=== PATIENT | female | born 1995 | race Caucasian/White ===

== ENCOUNTER → 2016-11-15 | Outpatient (CLI) | payer OTHER, BC ==
[2016-11-15 14:04] LABS: ALBUMIN/GLOBULIN RATIO 1.3 (1.0-2.2); BILIRUBIN,TOTAL 0.9 mg/dL (0.2-1.0); BUN - BLOOD UREA NITROGEN 11 mg/dL (6-20); CALCIUM 9.1 mg/dL (8.5-10.3); CARBON DIOXIDE - CO2 26 mmol/L (21-32); CHLORIDE 104 mmol/L (101-111); CHOL/HDL RATIO 2.7 (<4.4); CHOLESTEROL 173 mg/dL; CREATININE 0.7 mg/dL (0.4-1.0); GFR - MDRD 106 (>89); GLUCOSE 91 mg/dL (70-100); HDL CHOLESTEROL 64 mg/dL; LDL/HDL RATIO 1.5 (<4.4); POTASSIUM 3.7 mmol/L (3.5-5.0); SODIUM 137 mmol/L (135-145); TOTAL PROTEIN 7.5 g/dL (6.7-8.2); TRIGLYCERIDES 63 mg/dL; VLDL CHOLESTEROL 13 mg/dL
[2016-11-15 14:19] LABS: BASOPHILS % (AUTO) 0.7 %; EOSINOPHILS # (AUTO) 0.1 10^3/uL (0.0-0.7); EOSINOPHILS % (AUTO) 1.5 %; HCT - HEMATOCRIT 39.5 % (37.0-47.0); HGB - HEMOGLOBIN 13.3 g/dL (12.0-16.0); LYMPHOCYTES # (AUTO) 2.1 10^3/uL (1.5-3.5); LYMPHOCYTES % (AUTO) 35.1 %; MEAN CORPUSCULAR HEMOGLOBIN 29.4 pg (27.0-31.0); MEAN CORPUSCULAR HGB CONC 33.5 g/dL (32.0-36.0); MEAN CORPUSCULAR VOLUME 87.6 fL (81.0-99.0); MEAN PLATELET VOLUME 9.9 fL (7.9-10.8); MONOCYTES # (AUTO) 0.5 10^3/uL (0.0-1.0); MONOCYTES % (AUTO) 7.9 %; NEUTROPHILS # (AUTO) 3.3 10^3/uL (1.5-6.6); NEUTROPHILS % (AUTO) 54.8 %; RED BLOOD COUNT 4.51 10^6/uL (4.20-5.40); RED CELL DISTRIBUTION WIDTH 13.8 % (12.0-15.0)
[2016-11-15 14:39] LABS: HEMOGLOBIN A1C 0.5 g/dL
== END ==
LOC: LAB.WCP 08:00
PROVIDERS: ATTEND Family Medicine
DX: Z00.00 Encounter for general adult medical examination without abnormal findings (principal)
CPT/HCPCS: 36415; 80053; 80061; 83036; 84443; 85025

== ENCOUNTER 2017-04-27 10:41 | Outpatient (CLI) | payer OTHER ==
[2017-04-27 11:05] LABS: BASOPHILS # (AUTO) 0.1 10^3/uL (0.0-0.1); BASOPHILS % (AUTO) 0.8 %; EOSINOPHILS # (AUTO) 0.1 10^3/uL (0.0-0.7); EOSINOPHILS % (AUTO) 0.6 %; HGB - HEMOGLOBIN 13.4 g/dL (12.0-16.0); LYMPHOCYTES # (AUTO) 2.3 10^3/uL (1.5-3.5); LYMPHOCYTES % (AUTO) 25.2 %; MEAN CORPUSCULAR HEMOGLOBIN 30.7 pg (27.0-31.0); MEAN CORPUSCULAR HGB CONC 34.5 g/dL (32.0-36.0); MEAN CORPUSCULAR VOLUME 88.9 fL (81.0-99.0); MEAN PLATELET VOLUME 8.5 fL (7.9-10.8); MONOCYTES # (AUTO) 0.7 10^3/uL (0.0-1.0); MONOCYTES % (AUTO) 7.2 %; NEUTROPHILS % (AUTO) 66.2 %; PLT - PLATELET COUNT 193 10^3/uL (130-450); RED BLOOD COUNT 4.37 10^6/uL (4.20-5.40); RED CELL DISTRIBUTION WIDTH 13.5 % (12.0-15.0); WHITE BLOOD COUNT 9.1 x10^3/uL (4.8-10.8)
[2017-04-27 11:22] LABS: BILIRUBIN,URINE NEGATIVE (NEGATIVE); GLUCOSE, URINE (UA) NEGATIVE (NEGATIVE); KETONES,URINE (UA) NEGATIVE (NEGATIVE); LEUKOCYTE ESTERASE, URINE NEGATIVE (NEGATIVE); NITRITE,URINE NEGATIVE (NEGATIVE); OCCULT BLOOD,URINE SMALL (NEGATIVE); PROTEIN,URINE NEGATIVE (NEGATIVE); UROBILINOGEN,URINE 0.2 (NORMAL) E.U./dL (NORMAL)
[2017-04-27 11:24] LABS: CLARITY,URINE CLEAR (CLEAR)
[2017-04-27 11:50] LABS: RBC,URINE 0-5 /HPF (0-5); SQUAMOUS EPITHELIAL CELL,UR RARE Squamous (<= Few)
[2017-04-27 11:51] LABS: BACTERIA,URINE Rare /HPF (None Seen)
[2017-04-28 13:22] LABS: HEPATITIS B SURFACE ANTIGEN NON-REACTIVE (NON-REACTIVE); HEPATITIS C ANTIBODY NON-REACTIVE (NON-REACTIVE)
[2017-04-28 13:31] LABS: HIV AG/AB 4TH GEN NON-REACTIVE (NON-REACTIVE)
== END 2017-04-27 10:42 | disposition home or self-care (01) ==
LOC: LAB 10:41
PROVIDERS: ATTEND Nurse Practitioner Obstetrics & Gynecology
DX: Z36.9 Encounter for antenatal screening, unspecified (principal); Z11.3 Encounter for screening for infections with a predominantly sexual mode of transmission
CPT/HCPCS: 36415; 81001; 81599; 85025; 86592; 86762; 86803; 86850; 86900; 86901; 87340; 87389; 87491; 87591

== ENCOUNTER 2017-04-27 15:51 | Outpatient (CLI) | payer OTHER | END 2017-04-27 15:52 | disposition home or self-care (01) | LOC: LAB.R 15:51 | PROVIDERS: ATTEND Nurse Practitioner Obstetrics & Gynecology | DX: Z11.3 Encounter for screening for infections with a predominantly sexual mode of transmission (principal) | CPT/HCPCS: 87491; 87591 ==

== ENCOUNTER 2017-05-25 10:00 | Outpatient (CLI) | payer OTHER | END 2017-05-25 10:01 | disposition home or self-care (01) | LOC: LAB.R 10:00 | PROVIDERS: ATTEND Registered Nurse | DX: R82.99 Other abnormal findings in urine (principal) | CPT/HCPCS: 87086 ==

== ENCOUNTER 2017-08-02 07:30 | Outpatient (CLI) | payer OTHER ==
--- NOTE | 2017-08-02 16:00 | Ultrasound Report ---
OB ULTRASOUND: 08/02/2017 CLINICAL INDICATION: anatomy. TECHNIQUE: Real-time scanning was performed with sales representative printing paper static images obtained. LAST MENSTRUAL PERIOD: -- Clinical Age: -- US Age: 19 weeks 4 days EFW Hadlock: 293 grams EFW% Hadlock: -- Heart Rate: 146 bpm EDC: -- US EDC: 12/23/2017 BPD Hadlock: 19 weeks 4 days; Mean mm 45 HC Hadlock: 19 weeks 5 days; Mean mm 171 AC Hadlock: 19 weeks 3 days; Mean mm 141 FL Hadlock: 19 weeks 2 days; Mean mm 30 Presentation: cephalic Placental Location: posterior Cervical Length: TA 4.2 cm Amniotic Fluid: MICHELET 11.2 cm; subjectively normal; MVP 4.0 cm FINDINGS: There is a single viable intrauterine gestation, in cephalic presentation. heart rate is 146 BPM. Placenta is posterior, without evidence of previa. Amniotic fluid volume is subjectively normal, deepest pocket of 4 cm. By size, the fetus measures 19 weeks 4 days (20 weeks 1 day by provided JUANA, provided LMP does not match provided JUANA, and was not entered). The following anatomic structures were visualized and appear normal: The intracranial contents, including the ventricles and posterior fossa; the lips and orbits; the spine; the heart, including 4 chamber view and outflow tracts, and diaphragm; the abdominal contents, including the stomach, the bilateral kidneys, and urinary bladder, as well as a normal 3-vessel cord insertion; 4 limbs. No free fluid or adnexal lesion is appreciated. IMPRESSION: SINGLE VIABLE INTRAUTERINE GESTATION, MEASURING 19 WEEKS 4 DAYS BY SIZE. NORMAL ANATOMIC SURVEY. TD: 08/02/2017 11:43 [facility]
== END 2017-08-02 07:31 | disposition home or self-care (01) ==
LOC: DI 07:30
PROVIDERS: ATTEND Nurse Practitioner Obstetrics & Gynecology
DX: Z36.9 Encounter for antenatal screening, unspecified (principal); Z3A.19 19 weeks gestation of pregnancy
CPT/HCPCS: 76811

== ENCOUNTER 2017-09-04 14:23 | Outpatient (CLI) | payer OTHER ==
[2017-09-04 15:12] LABS: BILIRUBIN,URINE NEGATIVE (NEGATIVE); GLUCOSE, URINE (UA) NEGATIVE (NEGATIVE); KETONES,URINE (UA) NEGATIVE (NEGATIVE); LEUKOCYTE ESTERASE, URINE NEGATIVE (NEGATIVE); NITRITE,URINE NEGATIVE (NEGATIVE); OCCULT BLOOD,URINE NEGATIVE (NEGATIVE); PROTEIN,URINE NEGATIVE (NEGATIVE); UROBILINOGEN,URINE 0.2 (NORMAL) E.U./dL (NORMAL)
[2017-09-04 15:14] VITALS: BP 124/68
[2017-09-04 15:26] LABS: BACTERIA,URINE None Seen /HPF (None Seen); CLARITY,URINE CLEAR (CLEAR); RBC,URINE None Seen /HPF (0-5); SQUAMOUS EPITHELIAL CELL,UR NONE SEEN (<= Few)
== END 2017-09-04 15:30 | disposition home or self-care (01) ==
LOC: WFO 14:23 → FBP 14:26 → WFO 15:30
PROVIDERS: ATTEND Obstetrics & Gynecology
DX: O26.892 Other specified pregnancy related conditions, second trimester (principal); Z3A.24 24 weeks gestation of pregnancy
CPT/HCPCS: 81001; 87086; 99213

== ENCOUNTER 2017-09-23 09:06 | Outpatient (CLI) | payer OTHER | END 2017-09-23 09:07 | disposition home or self-care (01) | LOC: LAB.WCP 09:06 | PROVIDERS: ATTEND Nurse Practitioner Obstetrics & Gynecology | DX: Z36.9 Encounter for antenatal screening, unspecified (principal) | CPT/HCPCS: 36415; 82950; 85018; 86850 ==

== ENCOUNTER 2017-10-11 17:00 | Outpatient (CLI) | payer OTHER ==
[2017-10-11] MEDS ORDERED: BETAMETHASONE 30 MG/5 ML VIAL IM ONE (17:39)
[2017-10-11 17:49] LABS: BILIRUBIN,URINE NEGATIVE (NEGATIVE); CLARITY,URINE CLEAR (CLEAR); GLUCOSE, URINE (UA) NEGATIVE (NEGATIVE); KETONES,URINE (UA) NEGATIVE (NEGATIVE); LEUKOCYTE ESTERASE, URINE NEGATIVE (NEGATIVE); NITRITE,URINE NEGATIVE (NEGATIVE); OCCULT BLOOD,URINE NEGATIVE (NEGATIVE); PH,URINE 6.5 PH (5.0-7.5); PROTEIN,URINE NEGATIVE (NEGATIVE); UROBILINOGEN,URINE 0.2 (NORMAL) E.U./dL (NORMAL)
[2017-10-11 18:07] LABS: BACTERIA,URINE None Seen /HPF (None Seen); RBC,URINE None Seen /HPF (0-5); SQUAMOUS EPITHELIAL CELL,UR RARE Squamous (<= Few)
[2017-10-11 20:07] VITALS: BP 107/58
--- NOTE | 2017-10-11 20:42 | Ultrasound Report ---
Procedure Date: 10/11/2017 Accession Number: [id number] / [id number] Procedure: US - OB Transvaginal CPT Code: FULL RESULT: EXAM: LIMITED OBSTETRICAL ULTRASOUND EXAM DATE: 10/11/2017 07:20 PM. CLINICAL HISTORY: Cervical length. COMPARISON: None. TECHNIQUE: Real-time sonographic evaluation of the cervix was performed. Select static images are submitted for interpretation. Transabdominal and transvaginal technique was used. DATING: Established EGA 29 weeks 4 days with JUANA 12/23/2017. The cervix is long and closed measuring 5 cm. heart rate is 161 bpm. IMPRESSION: 1. Lozano live intrauterine with gestational age 29 weeks 4 days based on established JUANA. 2. The cervix is long and closed measuring 5 cm in length. RADIA
== END 2017-10-11 20:04 | disposition home or self-care (01) ==
LOC: WFO 17:00 → FBP 17:05 → WFO 20:04
PROVIDERS: ATTEND Nurse Practitioner Obstetrics & Gynecology
DX: O47.1 False labor at or after 37 completed weeks of gestation (principal); Z3A.30 30 weeks gestation of pregnancy
CPT/HCPCS: 76817; 81001; 82731; 87081; 87086; 87181; 87797; 96372; 99214

== ENCOUNTER 2017-10-12 17:35 | Outpatient (CLI) | payer OTHER ==
[2017-10-12] MEDS ORDERED: BETAMETHASONE 30 MG/5 ML VIAL IM ONE (17:40)
== END 2017-10-12 17:51 | disposition home or self-care (01) ==
LOC: WFO 17:35 → FBP 17:36 → WFO 17:51
PROVIDERS: ATTEND Nurse Practitioner Obstetrics & Gynecology
DX: O47.03 False labor before 37 completed weeks of gestation, third trimester (principal); Z3A.30 30 weeks gestation of pregnancy
CPT/HCPCS: 96372

== ENCOUNTER 2017-10-13 12:36 | Outpatient (CLI) | payer OTHER ==
[2017-10-13 12:53] VITALS: BP 129/70
--- NOTE | 2017-10-14 11:44 | HISTORY & PHYSICAL EXAMINATION ---
DATE OF SERVICE: 10/13/2017 Physician: Issac Valdivia MD DIAGNOSES 1. A 30-week, 1 day gestation. 2. Complains of pelvic pressure. Patient is a 22-year-old, primigravida at 30 weeks 1 day gestation who has had regular care with Kinsey Awad. By ultrasound dating criteria ( final JUANA 12/19), patient is 30 weeks 1 day today. She reports pelvic pressure and pain. She does not report contractions, bleeding or vaginal discharge, nor suspicion of leaking fluid. She had been evaluated by Kinsey Awad 2 days ago, with my supervision. At that time, her cervical length was 5 cm, FFN was negative, and a cervical length was long, thick, and closed. She has no UTI symptoms, and previous urinalysis was essentially normal. She received 2 doses of betamethasone. There are no signs or symptoms of preeclampsia. PHYSICAL EXAMINATION GENERAL: Patient is somewhat anxious, lying supine on the stretcher in no distress, communicative, in attendance. VITAL SIGNS: Normotensive, afebrile. HEENT: Supple neck. Moist mucous membranes. Nonicteric sclerae. LUNGS: Clear. CARDIAC: Regular. No murmur, no gallop. BREASTS: Deferred. ABDOMEN: No epigastric tenderness or organomegaly. CVA tenderness. Benign exam. UTERUS: Appropriate for size of 30 cm fundal height. Normal resting tone. No contractions felt. EXTERNAL GENITALIA: No lesions, no discharge, no blood. VAGINA: No blood or discharge. Cervix long, thick, closed, posterior and high , essentially no change from baseline exam. PELVIC/MUSCULOSKELETAL: Levator plate tenderness, some mild spasm. No symphysis tenderness. Did not reproduce a round ligament type of pain on pressure to the inguinal canal. MUSCULOSKELETAL/GENERAL: Negative straight leg raise. EXTERNAL MONITOR: Category 1 strip, baseline between 130 and 160. Variability maintained. No decelerations. No organized contraction pattern. PSYCHIATRIC: Patient does have a baseline increase in anxiety. ASSESSMENT: Patient is not in labor and is of low risk of delivery based on fibronectin and cervical length. Cervical exam was done at her request because of fear of undetected labor. She was given reassurances. She has a levator plate and musculoskeletal complaints that trigger increased anxiety. She was given reassurance that she should report any unusual uterine activity or suspected problems to us promptly. Patient works as a scribe in an emergency room and, due to the nature of that job, she is exposed to some traumatic events that may fuel her anxiety. PLAN 1. Gave patient reassurance. Reviewed all labs and information with her and her . 2. Recommend daily stretching activity for lumbar pain, inclusive of a tennis ball massage. 3. Reviewed the signs and symptoms of labor and preeclampsia. 4. She is to keep her next scheduled appointment with Kinsey Awad. A total of 35 minutes was spent, the majority of which was in education and counseling. TD: 10/14/2017 08:43 GEE
== END 2017-10-13 14:10 | disposition home or self-care (01) ==
LOC: WFO 12:36 → FBP 12:38 → WFO 14:10
PROVIDERS: ATTEND Nurse Practitioner Obstetrics & Gynecology
DX: O26.893 Other specified pregnancy related conditions, third trimester (principal); Z3A.30 30 weeks gestation of pregnancy
CPT/HCPCS: 99212

== ENCOUNTER 2017-11-17 10:33 | Outpatient (CLI) | payer OTHER ==
[2017-11-17 11:01] VITALS: BP 114/78
[2017-11-17 11:26] LABS: BILIRUBIN,URINE NEGATIVE (NEGATIVE); GLUCOSE, URINE (UA) NEGATIVE (NEGATIVE); KETONES,URINE (UA) NEGATIVE (NEGATIVE); LEUKOCYTE ESTERASE, URINE NEGATIVE (NEGATIVE); NITRITE,URINE NEGATIVE (NEGATIVE); OCCULT BLOOD,URINE NEGATIVE (NEGATIVE); PROTEIN,URINE NEGATIVE (NEGATIVE); UROBILINOGEN,URINE 0.2 (NORMAL) E.U./dL (NORMAL)
[2017-11-17 11:28] LABS: CLARITY,URINE CLEAR (CLEAR)
[2017-11-17] MEDS ORDERED: LACTATED RINGERS 1,000 ML IV ONE (11:29)
[2017-11-17 12:43] LABS: BASOPHILS # (AUTO) 0.1 10^3/uL (0.0-0.1); BASOPHILS % (AUTO) 0.6 %; EOSINOPHILS % (AUTO) 0.1 %; HGB - HEMOGLOBIN 11.2 g/dL (12.0-16.0); LYMPHOCYTES # (AUTO) 2.3 10^3/uL (1.5-3.5); LYMPHOCYTES % (AUTO) 20.9 %; MEAN CORPUSCULAR HEMOGLOBIN 27.3 pg (27.0-31.0); MEAN CORPUSCULAR HGB CONC 32.6 g/dL (32.0-36.0); MEAN CORPUSCULAR VOLUME 83.7 fL (81.0-99.0); MEAN PLATELET VOLUME 10.6 fL (7.9-10.8); MONOCYTES # (AUTO) 0.5 10^3/uL (0.0-1.0); MONOCYTES % (AUTO) 4.9 %; NEUTROPHILS # (AUTO) 8.2 10^3/uL (1.5-6.6); NEUTROPHILS % (AUTO) 73.5 %; PLT - PLATELET COUNT 170 10^3/uL (130-450); RED CELL DISTRIBUTION WIDTH 15.4 % (12.0-15.0); WHITE BLOOD COUNT 11.1 x10^3/uL (4.8-10.8)
[2017-11-17 12:56] LABS: ALBUMIN 3.2 g/dL (3.2-5.5); ALBUMIN/GLOBULIN RATIO 0.9 (1.0-2.2); BILIRUBIN,TOTAL 0.4 mg/dL (0.2-1.0); CREATININE 0.7 mg/dL (0.4-1.0); TOTAL PROTEIN 6.9 g/dL (6.7-8.2)
[2017-11-17 13:27] LABS: CALCIUM 9.1 mg/dL (8.5-10.3)
== END 2017-11-17 15:25 | disposition home or self-care (01) ==
LOC: WFO 10:33 → FBP 10:40 → WFO 15:25
PROVIDERS: ATTEND Registered Nurse
DX: O47.1 False labor at or after 37 completed weeks of gestation (principal); Z3A.37 37 weeks gestation of pregnancy
CPT/HCPCS: 80053; 81003; 85025; 99213; J7120; 81001; 87086

== ENCOUNTER 2017-11-21 09:44 | Outpatient (CLI) | payer OTHER ==
--- NOTE | 2017-11-21 14:57 | Ultrasound Report ---
Reason: UTERINE SIZE DATE DISCREPANCY,THIRD TRIMESTER Procedure Date: 11/21/2017 Accession Number: [id number] / [id number] Procedure: US - OB F/U or Repeat CPT Code: FULL RESULT: EXAM: FOLLOW-UP OBSTETRICAL ULTRASOUND EXAM DATE: 11/21/2017 11:27 AM. CLINICAL HISTORY: Size greater than dates. Third trimester. COMPARISON: None. TECHNIQUE: Real-time sonographic evaluation of the fetus performed by the plastic shaper. Multiple billing representative static images were saved for review. DATING: Established EGA 35 weeks 3 days with JUANA 12/23/2017 based on established dates. EGA 35 weeks 3 days with JUANA 12/23/2017 based on the current ultrasound. GENERAL EVALUATION Lozano . Cardiac activity: 150 bpm. movement: Visualized. Presentation: Cephalic. Placenta: Posterior fundal position. Amniotic fluid: Polyhydramnios. MICHELET 26.6 cm. MVP 8.2 cm. BIOMETRY Bi-Parietal Diameter (BPD): 9.1 cm, 36 weeks 4 days. Head Circumference (HC): 32.8 cm, 37 weeks 1 day. Abdominal Circumference (AC): 31.5 cm, 35 weeks 3 days. Femur Length (FL): 6.3 cm, 32 weeks 4 days. Estimated Weight: 2567 gm. IMPRESSION: 1. Lozano live intrauterine with gestational age 35 weeks 3 days based on established dates. 2. Estimated weight is within expected limits for assigned dating. 3. Polyhydramnios with amniotic fluid index 26.6 cm. RADIA
== END 2017-11-21 09:45 | disposition home or self-care (01) ==
LOC: DI 09:44
PROVIDERS: ATTEND Registered Nurse
DX: O26.843 Uterine size-date discrepancy, third trimester (principal); O40.3XX0 Polyhydramnios, third trimester, not applicable or unspecified; Z3A.35 35 weeks gestation of pregnancy
CPT/HCPCS: 76816

== ENCOUNTER 2017-11-22 08:00 | Outpatient (CLI) | payer OTHER | END 2017-11-22 08:01 | disposition home or self-care (01) | LOC: LAB.R 08:00 | PROVIDERS: ATTEND Nurse Practitioner Obstetrics & Gynecology | DX: Z36.85 Encounter for antenatal screening for Streptococcus B (principal) | CPT/HCPCS: 87797 ==

== ENCOUNTER 2017-11-26 12:56 | Outpatient (CLI) | payer OTHER ==
[2017-11-26] MEDS ORDERED: LACTATED RINGERS 500 ML IV ONE (15:42)
[2017-11-26] MEDS ORDERED: LACTATED RINGERS 1,000 ML IV ONE (15:47)
[2017-11-26] MEDS: SODIUM CHLORIDE FLUSH 0.9% 10 ML SYRINGE IVP PRN ×2 (15:50→18:07)
[2017-11-26] MEDS ORDERED: MORPHINE 10 MG/ML VIAL IVP ONE (17:44)
[2017-11-26] MEDS ORDERED: PROMETHAZINE 25 MG/1 ML VIAL IM SCH (18:00)
[2017-11-26 20:24] VITALS: BP 129/67
--- NOTE | 2017-11-26 20:24 | Ultrasound Report ---
Reason: POLYHYDRAMNIOS, 3RD TRIMESTER Procedure Date: 11/26/2017 Accession Number: [id number] / [id number] Procedure: US - OB Biophysical Profile CPT Code: FULL RESULT: EXAM: BIOPHYSICAL PROFILE EXAM DATE: 11/26/2017 01:41 PM. CLINICAL HISTORY: Polyhydramnios, 3rd trimester. COMPARISON: OB follow up or repeat 11/21/2017 10:08 AM. TECHNIQUE: Real-time sonographic evaluation of the fetus performed by the outside upholsterer. Multiple medical field representative static images were saved for review. DATING: Established EGA 36 weeks 1 day with JUANA 12/23/2017. GENERAL EVALUATION Lozano . Cardiac activity: 135 bpm. movement: Visualized. Presentation: Cephalic. Placenta: Posterior fundal position. No evidence for previa or abruption. Amniotic fluid: Elevated. MICHELET 20.6 cm. Previously 26.55 cm. MVP 10.1 cm. BIOPHYSICAL PROFILE Breathing = 2 Movement = 2 Tone = 2 Amniotic Fluid = 2 Total 10/12 IMPRESSION: 1. Lozano live intrauterine with gestational age 36 weeks 1 day based on established JUANA. 2. Biophysical profile score 8 of 8. 3. Amniotic fluid index measures 20.6 cm compared with the previous 26.6 cm. RADIA
== END 2017-11-26 21:36 | disposition home or self-care (01) ==
LOC: DI 12:56 → FBP 14:19 → DI 21:36
PROVIDERS: ATTEND Nurse Practitioner Obstetrics & Gynecology
DX: O40.3XX0 Polyhydramnios, third trimester, not applicable or unspecified (principal); O47.1 False labor at or after 37 completed weeks of gestation; Z3A.36 36 weeks gestation of pregnancy
CPT/HCPCS: 59025; 76819; 96361; 96372; 96374; 99213; J7120

== ENCOUNTER 2017-12-02 15:00 | Outpatient (CLI) | payer OTHER ==
[2017-12-02 17:19] VITALS: BP 123/80
--- NOTE | 2017-12-02 21:34 | Ultrasound Report ---
Reason: POLYHYDRAMNIOS, 3RD TRIMESTER Procedure Date: 12/02/2017 Accession Number: [id number] / [id number] Procedure: US - OB Biophysical Profile CPT Code: FULL RESULT: EXAM: BIOPHYSICAL PROFILE EXAM DATE: 12/02/2017 04:35 PM. CLINICAL HISTORY: POLYHYDRAMNIOS, 3RD TRIMESTER. COMPARISON: 11/26/2017. TECHNIQUE: Real-time sonographic evaluation of the fetus performed by the tool smith. Multiple sales solutions representative static images were saved for review. DATING: Established EGA 37 weeks 0 days with JUANA 12/24/1979. GENERAL EVALUATION Lozano . Cardiac activity: 150 bpm. movement: Visualized. Presentation: Cephalic. Placenta: Fundal posterior position. No evidence for previa or abruption. Amniotic fluid: Normal. MICHELET 26.3 cm. MVP 8.4 cm. BIOPHYSICAL PROFILE Breathing = 2 Movement = 2 Tone = 2 Amniotic Fluid = 2 Total 10/12 IMPRESSION: 1. Lozano live intrauterine with normal biophysical profile. 2. Polyhydramnios. RADIA
--- NOTE | 2017-12-04 02:30 | Labor Flowsheet ---
Labor Flowsheet Datetime Report Generated by CPN: 12/04/2017 02:30 Datetime: 12/03/2017 20:18 VITAL SIGNS NBP Sys/Eulalia/Mean (mmHg): 110 : 59 : 70 Pulse: 79 SpO2 (%): 100 Datetime: 12/03/2017 18:32 Comments: This tracing is not for Seehaver - this is for a 22week gestation triage patient Datetime: 11/26/2017 21:11 UTERINE ACTIVITY Monitor Mode: External Monitor Interventions for UA: [place] Adjusted Frequency (min): uterine irritability Quality: Mild Duration (sec): 10-40 Pattern: Normal: <= 5 Contractions in 10 Minutes Resting Tone (Palpate): Relaxed ASSESSMENT A Monitor Mode: External US Monitor Interventions for FHR: Ultrasound Adjusted FHR Baseline Rate : 135 Variability: Moderate 6-25 bpm Accelerations: 15X15 Decelerations: None Datetime: 11/26/2017 20:15 Contraction Comments: Pt states feeling rare contraction, only lower abdominal and back pressure Category: Category I Datetime: 11/26/2017 20:00 Respirations: 17 Temperature (C): 37.3 PAIN Pain Scale: 5 Pain Presence: Intermittent Pain Goal: 7 Pain Assessment Comments: pt states pain is much less now MATERNAL ASSESSMENT Level of Consciousness: Fully Conscious DTR's/Clonus: DTRs 2+ Headache: Denies Breath Sounds, Left: Clear and Equal Breath Sounds, Right: Clear and Equal Nausea/Vomiting: Denies RUQ Epigastric Pain: Denies
== END 2017-12-02 17:12 | disposition home or self-care (01) ==
LOC: DI 15:00 → FBP 17:10 → DI 17:12
PROVIDERS: ATTEND Nurse Practitioner Obstetrics & Gynecology
DX: O40.3XX0 Polyhydramnios, third trimester, not applicable or unspecified (principal)
CPT/HCPCS: 59025; 76819

== ENCOUNTER 2017-12-04 05:42 | Inpatient (IN) | payer OTHER ==
[2017-12-04] MEDS ORDERED: fentaNYL 100 MCG/2 ML VIAL IVP PRN (06:03)
[2017-12-04] MEDS ORDERED: SODIUM CHLORIDE FLUSH 0.9% 10 ML SYRINGE IVP PRN (06:03)
[2017-12-04] MEDS ORDERED: SODIUM CHLORIDE FLUSH 0.9% 10 ML SYRINGE ONE ×2 (06:18→14:14)
[2017-12-04] MEDS ORDERED: LACTATED RINGERS 1,000 ML IV ONE (06:18)
[2017-12-04] MEDS ORDERED: VANCOMYCIN INJ 1 GM in SODIUM CHLORIDE 0.9% 250 ML IV SCH ×5 (06:30→19:00)
[2017-12-04 06:35] LABS: RUPTURE OF MEMBRANES PLUS POSITIVE (NEGATIVE)
[2017-12-04] MEDS: ONDANSETRON 4 MG/2 ML VIAL IVP PRN ×3 (06:52→19:27)
[2017-12-04 06:54] LABS: BASOPHILS # (AUTO) 0.1 10^3/uL (0.0-0.1); EOSINOPHILS % (AUTO) 0.6 %; HGB - HEMOGLOBIN 10.4 g/dL (12.0-16.0); LYMPHOCYTES # (AUTO) 2.6 10^3/uL (1.5-3.5); MEAN CORPUSCULAR HGB CONC 33.1 g/dL (32.0-36.0); MEAN CORPUSCULAR VOLUME 78.5 fL (81.0-99.0); MEAN PLATELET VOLUME 9.9 fL (7.9-10.8); MONOCYTES # (AUTO) 0.7 10^3/uL (0.0-1.0); NEUTROPHILS % (AUTO) 59.4 %; PLT - PLATELET COUNT 177 10^3/uL (130-450); RED BLOOD COUNT 4.01 10^6/uL (4.20-5.40); RED CELL DISTRIBUTION WIDTH 16.4 % (12.0-15.0); WHITE BLOOD COUNT 8.5 x10^3/uL (4.8-10.8)
[2017-12-04] MEDS: LACTATED RINGERS 1,000 ML IV SCH ×2 (08:14→15:45)
[2017-12-04] MEDS ORDERED: miSOPROStol 100 MCG TABLET BC SCH ×2 (09:00→13:13)
[2017-12-04] MEDS: SERTRALINE 50 MG TABLET PO SCH (09:08)
[2017-12-04] MEDS: SODIUM CHLORIDE FLUSH 0.9% 10 ML SYRINGE IVP SCH ×2 (09:08→17:06)
--- NOTE | 2017-12-04 11:38 | HISTORY & PHYSICAL EXAMINATION ---
Admit History - Instructions [place]/Slash: -Left hand click circles element as positive or present. -Right hand click slashes element as negative or not present. - Visit Reason Visit Reason: Membranes rupture - : 1 Parity: 0 Premature: 0 Ectopic: 0 Care: positive: [facility] Risk/History: positive: None Complications This : positive: Other Smoking Status: Never smoker - Mother's Labs Mother's Blood Type: positive: A Mother's RH: positive: Negative GBS: positive: Group B Strep Positive Rubella Status: positive: Immune Meds/Allgy - Allergies Allergies/Adverse Reactions: Allergies Allergy/AdvReac Type Severity Reaction Status Date / Time Penicillins AdvReac Hives Verified 11/17/17 11:35 Review of Systems - Constitutional Constitutional: denies: Fatigue, Fever, Chills - Eyes Eyes: denies: Pain, Irritation, Blurred vision, Spots in vision, Field loss, Vision loss - Cardiovascular Cariovascular: denies: Irregular heart rate, Palpitations, Chest pain, Edema, Lightheadedness - Respiratory Respiratory: denies: Cough, Sputum production, Wheezing - Gastrointestinal Gastrointestinal: denies: Abdominal pain, Constipation, Diarrhea, Nausea, Vomiting - Genitourinary Genitourinary: denies: Dysuria, Frequency, Urgency - Integumentary Integumentary: denies: Rash, Pruritis - Neurological Neurological: denies: Headache - Psychiatric Psychiatric: denies: Depression, Anxiety Physical - Abdominal Exam Vital Signs: Temp Pulse Resp BP Pulse Ox 36.5 C 98 20 117/79 98 12/04/17 05:51 12/04/17 05:51 12/04/17 05:51 12/04/17 05:51 12/04/17 05:51 Contraction Frequency (min/apart): 3-6 Contraction Intensity: positive: Mild to moderate Uterine Resting Tone: positive: Soft - Monitoring Heart Rate Baseline: 150 Strip Review: positive: Category I - Presentation Presentation: positive: Vertex - Vaginal Exam Membranes: positive: Membranes ruptured Dilation (in cm): 2-3 Effacement (%): 80 Station: positive: -1 Cervical Position: positive: Posterior - Speculum Exam Speculum Exam Performed: positive: No Findings: positive: Gross leak Plan for Labor - Plan For Labor I expect patient to be DC'd or transferred within 96 hours.: Yes Plan for Labor: HPI: Gianna is a 22yo @ 37.6wks gestation by 6.2wk U/S who presents to [facility] with c/o spontaneous rupture of membranes on 12/04/2017 at 0500. She reports leakage of a large amount of clear fluid vaginally. She denies VB. Reports mild, intermittent contractions. Reports +FM. She denies GL[place], visual disturbances, RUQ or epigastric pain. She has been a patient of [facility] throughout the duration of her . Her has been complicated by anxiety and depression which required sertraline 50mg PO daily for management, intermittent episodes of lower abdominal pain and uterine irritability - FFN negative with ultrasound for evaluation of cervical length 10/18/2017. Polyhydramnios diagnosed by ultrasound at 35wks gestation for which she was evaluated by once weekly NST and BPP. She is Rh negative and received Rhogam 09/27/2017 following negative antibody screen. She tested positive for GBS at 36wks gestation and is allergic to penicillin Upon her arrival she was noted to be 1-2/75/-3, posterior, vertex with grossly rupture membranes and large amount of yellow-tinged vaginal fluid. She was admitted to L&D for active management. Occasional intermittent contractions which palpate mild with soft resting tone. FHR baseline 150s upon arrival. Over the first 4 hours following admission the FHR baseline steadily increased. Moderate variability, + accels, no decels. Fluid bolus of LR administered and FHR baseline decreased appropriately to 150s. Dating criteria: 1.) LMP 03/07/2017 2.) Initial ultrasound @ 6.2wks does not agree 3.) Serial exams 10-37wks agrees with established dating OB History: G1: Current [employer] Hx: Menarche age 12 Reguarly menses every 32-34 days No hx STIs, no hx [employer] surgeries Hx abnormal pap x1 -Last pap 11/2016 HPV positive PMHx: Depression; Migraine headaches; Gastric reflux Medications: Hydroxyzine 50mg; Sertraline 50mg; PNV Allergies: Penicillin - severe reaction Social Hx: Fijoseline Ramirez. Never smoker. No ETOH or IVDA. Works as a medical office administrator in the ED. Family Hx: Depression - Mother; Diabetes - paternal grandfather; HTN - maternal grandfather; alcohol or drug problem - father labs: A neg; antibody neg Hgb 13.4; HCT38.9; PLT 193 HIV neg Rubella immune Hep B non-reactive Hep C non-reactive RPR non-reactive GC/CT neg 28 week labs: 1 hour GTT 128 Hgb 11.3 Antibody neg Rhogam 09/27/2017 Tdap 09/27/2017 GBS positive - penicillin allergic Ultrasounds: 08/08/2017 FAS WNL; posterior placenta, no previa. Size c/w established dating. MICHELET WNL. 10/18/2017 Cervix long and closed measuring 5cm in length 11/23/2017 Growth and MICHELET secondary to size > dates reveals size c/w dating - EFW 2567. Polyhydramnios with MICHELET 26.6cm 11/29/2017 BPP 8/8, NST reactive. MICHELET 20.6cm 12/02/2017 MICHELET 26.3. MVP 8.4cm. Physical Exam: A&O x 4 Heart RRR w/o M/G/R Lungs CTAB Abdomen gravid, soft, nontender EFW 3100g Bilateral LE's minimal edema Assessment: 22yo @ 37.6wks gestation Polyhydramnios PROM x 7.5 hours; Light meconium in amniotic fluid GBS positive; penicillin allergic - Vancomycin q 12 hours for prophlyaxis Pre-induction cervical ripening x 2 doses FHR category I Plan: Continue pre-induction cervical ripening Continuous monitoring Continue Vancomycin q 12 hours for GBS prophylaxis Repeat SVE with third dose of misoprostol - consider initiation of pitocin per protocol at that time Encouraged ambulation and frequent position changesGloria Norris for hydrotherapy or N2O for pain management Epidural per maternal request Reviewed plan of care with pt, , and RN at the bedside. They all verbalized understanding and agree to the above plan. They deny further questions or concerns at this time.
[2017-12-04] MEDS: OXYTOCIN/SODIUM CHLORIDE 250 ML IV ONE (11:40)
[2017-12-04] MEDS ORDERED: fent/BUPIV 2 MCG/0.125% 250 ML EP ONE (15:24)
--- NOTE | 2017-12-04 16:09 | ANESTHESIA ---
Pre-Anesthesia VS, & Labs - Diagnosis active labor - Procedure labor epidural Vital Signs: Temp Pulse Resp BP Pulse Ox 36.5 C 98 20 117/79 98 12/04/17 05:51 12/04/17 05:51 12/04/17 05:51 12/04/17 05:51 12/04/17 05:51 Height 5 ft 6 in Weight (kg) 104.78 kg - NPO Other (to be clears from now till delivery, vomitong upon my arrival) - Is Patient ?: Yes - Lab Results Current Lab Results: Laboratory Tests 12/04/17 06:30: WBC 8.5, RBC 4.01 L, Hgb 10.4 L, Hct 31.5 L, MCV 78.5 L, MCH 26.0 L, MCHC 33.1, RDW 16.4 H, Plt Count 177, MPV 9.9, Neut # (Auto) 5.0, Lymph # (Auto) 2.6, [place]son # (Auto) 0.7, Eos # (Auto) 0.0, Baso # (Auto) 0.1, Absolute Nucleated RBC 0.00, Nucleated RBC % 0.0 Lab results reviewed: Yes Fish Bones: 12/04/17 06:30 Home Medications and Allergies Active Medications Fentanyl (Fentanyl) 50 mcg IVP Q1H PRN PRN Reason: PAIN Lactated Ringer's (Lr) 1,000 mls @ 150 mls/hr IV .Q6H40M [facility] Last Admin: 12/04/17 08:14 Dose: 150 mls/hr Vancomycin HCl 1 gm/ Sodium (Chloride) 250 mls @ 167 mls/hr IV Q12H [facility] Misoprostol (Cytotec) 50 mcg BC Q4H [facility] Last Admin: 12/04/17 13:22 Dose: 50 mcg Ondansetron HCl (Zofran Inj) 4 mg IVP Q4H PRN PRN Reason: Nausea / Vomiting Last Admin: 12/04/17 14:18 Dose: 4 mg Sertraline HCl (Zoloft) 50 mg PO DAILY [facility] Last Admin: 12/04/17 09:08 Dose: 50 mg Sodium Chloride (Normal Saline Flush 0.9%) 10 ml IVP PRN PRN PRN Reason: NEEDED PER PROVIDER ORDERS Sodium Chloride (Normal Saline Flush 0.9%) 10 ml IVP 0100,00,1700 [facility] Last Admin: 12/04/17 09:08 Dose: 10 ml Allergies/Adverse Reactions: Allergies Allergy/AdvReac Type Severity Reaction Status Date / Time Penicillins AdvReac Hives Verified 11/17/17 11:35 Anes History & Medical History - Anesthetic History Anesthesia Complications: reports: No previous complications - Medical History Cardiovascular: reports: None Pulmonary: reports: None Gastrointestinal: reports: None Urinary: reports: None Neuro: reports: None Musculoskeletal: reports: None Endocrine/Autoimmune: reports: None Blood Disorders: reports: None Smoking Status: Never smoker Psychosocial: reports: No issues indicated - Obstetrical History : 1 Parity: 0 Events: positive: None Complications: positive: Other Problems: none Plan for Delivery: vaginal with epidural Exam General: Alert Dental: WNL Mouth Openin Fingerbreadth Mallampati classification: III Thyromental Distance: 4-6 cm Respiratory: Lungs clear Cardiovascular: Regular rate Plan Anesthesia Type: Epidural Consent for Procedure(s) Verified and Reviewed: Yes Code Status: Attempt Resuscitation ASA classification: 2-Mild systemic disease Is this case an emergency?: No
[2017-12-04] MEDS ORDERED: diphenhydrAMINE INJ 50 MG/ML VIAL IVP PRN (16:13)
[2017-12-04] MEDS ORDERED: ONDANSETRON 4 MG/2 ML VIAL IVP PRN (16:13)
[2017-12-04] MEDS ORDERED: fent/BUPIV 2 MCG/0.125% 250 ML EP PRN (16:13)
[2017-12-04] MEDS ORDERED: NALBUPHINE 10 MG/ML AMP IVP PRN (16:13)
[2017-12-04] MEDS ORDERED: NALOXONE 0.4 MG/ML VIAL IVP PRN (16:13)
[2017-12-04] MEDS ORDERED: ePHEDrine 50 MG/ML VIAL IVP PRN (16:13)
[2017-12-04] MEDS ORDERED: LACTATED RINGERS 500 ML IV ONE (16:13)
[2017-12-04] MEDS ORDERED: ROPIVACAINE 0.2% PF 20 ML AMPULE ONE (20:04)
[2017-12-04] MEDS ORDERED: fentaNYL 100 MCG/2 ML VIAL ONE (20:04)
[2017-12-04] MEDS ORDERED: LIDOCAINE 2% 10 ML MDV ONE (20:04)
[2017-12-04] MEDS: OXYTOCIN/SODIUM CHLORIDE 500 ML IV SCH (21:05)
--- NOTE | 2017-12-04 22:29 | PROVIDER PROGRESS NOTE ---
Labor Progress Note - Uterine Monitoring Uterine Monitoring Mode: positive: External toco Contraction Frequency (min/apart): 2-4 Contraction Intensity: positive: Strong Uterine Resting Tone: positive: Soft - Monitoring Monitor Mode: positive: External ultrasound Heart Rate Baseline: 150 Heart Rate Variability: positive: Moderate (6-25 bmp) Accelerations: positive: Present, 15x15 Decelerations: positive: None Strip Review: positive: Category I - Vaginal Exam Dilation (in cm): 9 Effacement (%): 100 Station: 0 Cervical Position: Anterior - Labor Progress Note Labor Progress Note/Additional Text: S:Patient comfortable with epidural and is currently resting on her left side. She reports increased rectal pressure with contractions which resolves between contractions. Anxious to meet their baby. Pt's mom and supportive at the bedside. O: BP 118/58, HR 7, T 36.6, RR 20 Contractions palpate strong every 2-4 minutes lasting 50-90 seconds with soft resting tone. FHR baseline 150s, moderate variability, + accels, no decels SVE 9/100/0, vertex, SHARONDA A: 22yo @ 37.8wks gestation Active labor Pitocin for labor augmentation with current infusion rate of 2mU SROM x 17.5 hours GBS positive, penicillin allergic - s/p Vancomycin x2 doses FHR Category I P: Continue active management with titration of pitocin per protocol Continuous monitoring Encouraged position changes in bed on peanut ball Anticipate spontaneous vaginal delivery. Reevalute in 2 hours or sooner PRN.
[2017-12-05] MEDS: ONDANSETRON 4 MG/2 ML VIAL IVP PRN (00:04)
[2017-12-05] MEDS: OXYTOCIN/SODIUM CHLORIDE 250 ML IV ONE (03:15)
[2017-12-05] MEDS ORDERED: OXYTOCIN/SODIUM CHLORIDE 250 ML IV ONE (03:38)
[2017-12-05] MEDS ORDERED: WITCH HAZEL/GLYCERIN 1 EACH MED..PAD TOP PRN (03:38)
--- NOTE | 2017-12-05 03:55 | DELIVERY NOTE ---
Delivery Note - Labor Labor: positive: Augmented by oxytocin - Delivery Method Delivery Method: positive: Spontaneous vaginal delivery - Cervical Ripening Method Cervical Ripening Method: positive: Misoprostil - Presentation Presentation: positive: Vertex, SHARONDA - left occiput anterior - Nuchal Cord Nuchal Cord: positive: None - Amniotic Fluid Description Amniotic Fluid Description: positive: Light meconium - Episiotomy Type Episiotomy Type: positive: None - Laceration Laceration: positive: 1st degree - Suture Suture Type: positive: Vicryl Suture Size: positive: 3-0 - Delivery Outcome Delivery Outcome: positive: Livebirth - [place]: positive: Placed in direct skin contact with mother, Bulb syringe, Stimulated, Warmed, Valentine used sex: positive: Female - Cord Cord: positive: 3 vessels - Placenta Placenta: positive: Intact, Spontaneous - Estimated Blood Loss Estimated Blood Loss (in cc): 250 - Post Delivery Events Post Delivery Events: positive: No post delivery events - Delivery Comments (Free Text/Narrative) Delivery Comments (Free Text/Narrative): Labor: This 22yo @ 37.5 weeks gestation presented on 12/04/2017 at 0630 w/ complaints leaking large amounts of clear fluid vaginally. Cervix was 1-2/75/-3, posterior, vertex. FHR pattern demonstrated Category I throughout labor. Pre-inductions cervical ripening with 50mcg BC misoprostol q 4 hours x 2. Epidural placed upon maternal request. Pitocin initiated and titrated per protocol for a max infusion rate of 2mU. The patient progressed to c/c/0 @ 0108 on 12/05/2017. : Normal of viable female named Jenny. No nuchal cord. Delivery occurred at 0240 n 12/05/2017. 's 7/9 at 1 and 5 min respectively. The was placed on maternal abdomen, stimulated, dried, and placed skin to skin. The umbilical cord was allowed to stop pulsating at which time it was doubly clamped by CNM and cut by FOB. Cord blood was obtained. Placenta delivered spontaneously and intact at 0250. 3VC. Pitocin administered via IV for hemostasis. EBL 250mL. Fourth Stage: Uterine fundus firm and there is no excessive bleeding. The perineum, vagina, and cervix were inspected and found to have minor first degree laceration which was repaired with a 3-[address]-1 needle in standard fashion under sterile conditions. Vaginal examination following repair was done. Tissues well approximated. initiated Family bonding well. Both mother and baby were left in stable condition.
[2017-12-05] MEDS: ACETAMINOPHEN 500 MG TABLET PO SCH ×3 (05:57→20:41)
[2017-12-05] MEDS: SERTRALINE 50 MG TABLET PO SCH (08:48)
[2017-12-05] MEDS: IBUPROFEN 800 MG TABLET PO SCH ×4 (08:48→22:08)
[2017-12-05] MEDS: DOCUSATE SODIUM 100 MG CAPSULE PO SCH ×2 (08:48→20:41)
--- NOTE | 2017-12-05 17:02 | PROVIDER PROGRESS NOTE ---
Subjective - Subjective Subjective: S: Bonding well with baby. without difficulty except baby is sleepy at the breast. Pt is holding baby skin to skin upon my arrival and states she knows baby will wake to feed soon but that skin to skin is best for her until then. Bleeding minimal. Pain well controlled with ibuprofen. Mood is good. Mom and supportive at the bedside. O: Bp 125/69, HR 85, RR18, T 36.8 Heart RRR w/o M/G/R, lungs CTAB, Abdomen soft and nontender with fundus firm at U. Perineum intact with trace edema. Light lochia rubra. Bilateral LE's no edema. Mood is good. A: 22yo -->P1 s/p TSVD of viable female infant Perineum intact GBS positive - adequately treated P: Continue routine care and medications. Will reevaluate tomorrow and plan discharge home at that time. Pt and family verbalized understanding and agree to above plan. They deny further questions or concerns at this time. Objective - Vital Signs/Intake & Output Vital Signs: Vital Signs x48h Temp Pulse Resp BP Pulse Ox 12/05/17 16:03 36.9 C 89 22 98/48 L 99 12/05/17 11:19 36.8 C 85 18 125/69 98 Intake & Output: Intake & Output 12/02/17 12/03/17 12/04/17 12/05/17 23:59 23:59 23:59 23:59 Intake Total 1000 500 Output Total 195 2180 Balance 805 -1680 - Lab Results Fish Bones: 12/04/17 06:30 Other Labs: Lab Results x24hrs 12/05/17 Range/Units 09:37 Blood Type A NEGATIVE Maternal Bleed NEGATIVE (NEGATIVE)
[2017-12-05] MEDS: LACTATED RINGERS 1,000 ML IV SCH (19:37)
[2017-12-06] MEDS ORDERED: RHO(D) IMMUNE GLOBULIN 300 MCG SYRINGE IM ONE (01:05)
[2017-12-06] MEDS: IBUPROFEN 800 MG TABLET PO SCH ×3 (04:08→18:15)
[2017-12-06] MEDS: ACETAMINOPHEN 500 MG TABLET PO SCH ×3 (04:15→23:06)
--- NOTE | 2017-12-06 08:24 | PROVIDER PROGRESS NOTE ---
Subjective - Prog Note Date Prog Note Date: 12/06/17 Prog Note Time: 08:15 - Subjective Pt reports feeling: Improved Subjective: Gianna is doing well. She is ambulating & voiding w/o difficulty or incontinence. She is passing flatus & tolerating a regular diet. Her pain is well-controlled w/ non-opioid analgesia. She is w/ some challenges secondary to sleepiness & no sustained latch as yet. Objective - Vital Signs/Intake & Output Reviewed Vital Signs: Yes Intake & Output: Intake & Output 12/03/17 12/04/17 12/05/17 12/06/17 23:59 23:59 23:59 23:59 Intake Total 5979 902 0958 Output Total 195 2180 Balance 805 -1680 1200 - Objective General Appearance: positive: No acute distress, Alert Respiratory: positive: Chest non-tender, No respiratory distress, Breath sounds nml Cardiovascular: positive: Regular rate & rhythm, No murmur, No gallop Abdomen: positive: Non-tender, No distention, Other (FF @ U-2) Back: positive: Nml inspection Skin: positive: Color nml, No rash, Warm, Dry Extremities: positive: Non-tender, Full ROM, Nml appearance, No pedal edema. negative: Calf tenderness, Duy's sign/cords Neurologic/Psychiatric: positive: Oriented x3, CN's nml (2-12), Motor nml, Sensation nml, Mood/affect nml Comments/Other: breasts b/l s, nt; nipples b/l intact & everted, colostrum readily expressible; latch attempt observed, shallow & unsustained - Lab Results Fish Bones: 12/04/17 06:30 Other Labs: Lab Results x24hrs 12/05/17 Range/Units 09:37 Blood Type A NEGATIVE Maternal Bleed NEGATIVE (NEGATIVE) Assessment/Plan - Problem List (1) (normal spontaneous vaginal delivery) Impression: 22 y/o s/p 12/05/17, PPD#1, normal uterine involution Adequate pain control w/ non-opioid analgesia w/some challenges secondary to behavior P: 1. continue routine pp care 2. support provided; to continue in ongoing fashion 3. anticipate d/c home PPD#2
[2017-12-06] MEDS: SODIUM CHLORIDE FLUSH 0.9% 10 ML SYRINGE IVP SCH ×4 (08:28→08:31)
[2017-12-06] MEDS: LACTATED RINGERS 1,000 ML IV SCH ×5 (08:28→08:33)
[2017-12-06] MEDS: OXYTOCIN/SODIUM CHLORIDE 500 ML IV SCH (08:29)
[2017-12-06] MEDS: DOCUSATE SODIUM 100 MG CAPSULE PO SCH ×2 (09:28→23:07)
[2017-12-06] MEDS: SERTRALINE 50 MG TABLET PO SCH (09:28)
--- NOTE | 2017-12-06 09:49 | ANESTHESIA POST OP EVALUATION ---
Anesthesia Post Eval - Post Anesthesia Eval CV Function Including HR & BP: positive: Stable (Follow up with pt r/t TIAGO for . Pt sleeping at time of chart closure. Per William Charles RN, pt is without c/o back pain, stated epidural was adequate in dampening contraction pain through delivery. Site was unremarkable following removal of catheter.) Pain Control: positive: Adequate Nausea & Vomiting: positive: Negative Anesthesia Complications: positive: None
[2017-12-07] MEDS: IBUPROFEN 800 MG TABLET PO SCH ×2 (00:12→06:23)
[2017-12-07] MEDS: ACETAMINOPHEN 500 MG TABLET PO SCH (06:23)
[2017-12-07] MEDS: LACTATED RINGERS 1,000 ML IV SCH ×3 (07:29→09:47)
[2017-12-07] MEDS: SODIUM CHLORIDE FLUSH 0.9% 10 ML SYRINGE IVP SCH ×3 (07:29→09:47)
[2017-12-07] MEDS: OXYTOCIN/SODIUM CHLORIDE 500 ML IV SCH (07:30)
[2017-12-07] MEDS: DOCUSATE SODIUM 100 MG CAPSULE PO SCH (09:46)
[2017-12-07] MEDS: SERTRALINE 50 MG TABLET PO SCH (09:46)
--- NOTE | 2017-12-07 13:07 | Discharge Plan ---
Discharge Plan Disposition: 01 Home, Self Care Condition: Good Diet: Regular Shower Restrictions: No Driving Restrictions: No Assistance Devices: Wheelchair Weight Bearing: Full Weight No Smoking: If you smoke, Please STOP! Call for help. Follow-up with: Kinsey Awad CNM, ARNP [Provider Admit Priv/Credential] -
--- NOTE | 2017-12-07 13:24 | PROVIDER PROGRESS NOTE ---
Subjective - Subjective Subjective: FINAL PROGRESS NOTE: S: Bonding well with baby. with nipple shield and feeling somewhat discouraged because baby would not feed without shield. Feels better after our conversation today. Bleeding decreased and is light. Pain well controlled with ibuprofen and tylenol. supportive at the bedside. O: BP 107/71, RR18, HR 96, T36.4 Perineum intact. Bilateral LE's no edema. A: 22yo -->P1 s/p TSVD of viable male named Karen P: Reviewed self care and warning s/sx. Continue tylenol and ibuprofen for pain management as needed. Continue PNV while . Present to [facility] in 1 week for support visit and in 3 weeks for routine visit. Objective - Vital Signs/Intake & Output Intake & Output: Intake & Output 12/04/17 12/05/17 12/06/17 12/07/17 23:59 23:59 23:59 23:59 Intake Total 0862 933 1638 Output Total 195 2180 Balance 805 -1680 2200 - Lab Results Fish Bones: 12/04/17 06:30
--- NOTE | 2017-12-07 14:52 | DISCHARGE SUMMARY ---
Physician: CATALINA Cabral DATE OF ADMISSION: 12/04/2017 DATE OF DISCHARGE: 12/07/2017 DIAGNOSES ON ADMISSION 1. A 22-year-old G1, P0 at 37.6 weeks' gestation. 2. Spontaneous rupture of membranes. 3. Polyhydramnios. 4. Group B streptococcus positive, PENICILLIN ALLERGIC. DIAGNOSES ON DISCHARGE 1. A 22-year-old G1, P1-0-0-1, status post spontaneous vaginal delivery on 12/05/2017. 2. Vancomycin for group B streptococcus prophylaxis secondary to PENICILLIN ALLERGY. The patient received 2 doses 12 hours apart. 3. Normal recovery. HISTORY OF PRESENT ILLNESS: Patient is a patient of [facility] who presented on 12/04/2017 with complaints of leaking large amounts of clear fluid vaginally. Her cervix was noted to be 1-2 cm dilated, 75% and a -3 station in a vertex position. Preinduction cervical ripening with 50 mcg buccal misoprostol q.4 hours for a total of 2 doses. Epidural was placed upon maternal request. The patient was augmented with Pitocin and titrated per protocol with a maximum infusion rate of 2 milliunits. She progressed to spontaneously deliver a viable female Adeline (spi. Delivery occurred at 0240 hours on 12/05/2017. Apgars were 7 and 9 at one and five minutes, respectively. EBL 250 mL. The perineum, vagina and cervix were inspected and found to have a minor first-degree laceration, which was repaired with 3-0 Vicryl and a CT1 needle in a standard fashion under sterile conditions. She has been doing well in her course. She is ambulating and tolerating a regular diet. She is urinating without difficulty and her lochia is normal. Her pain is well controlled with oral medications. She will be discharged home today on day #2 with instructions to continue vitamin while and to take ibuprofen and Tylenol [id number] for pain management as needed. She intends to follow up with myself at [facility] in 1 week for support visit and then in 3 weeks for routine visit. She has been given precautions to call if she has any worsening fever, chills, abdominal pain, increased bleeding, or foul smelling vaginal lochia. TD: 12/07/2017 13:37 MTDGabrielle
[2017-12-07 16:14] VITALS: BP 110/60
--- NOTE | 2017-12-07 16:26 | Labor Flowsheet ---
Labor Flowsheet Datetime Report Generated by CPN: 12/07/2017 16:26 Datetime: 12/06/2017 23:10 VITAL SIGNS NBP Sys/Eulalia/Mean (mmHg): 107 : 71 : 80 Pulse: 80 LaborFlag: Labor Datetime: 12/06/2017 18:19 SpO2 (%): 100 Datetime: 12/05/2017 02:40 UTERINE ACTIVITY Monitor Mode: External Frequency (min): 2.5-3.5 Quality: Strong Duration (sec): 60-100 Pattern: Normal: <= 5 Contractions in 10 Minutes Resting Tone (Palpate): Relaxed ASSESSMENT A Monitor Mode: External US FHR Baseline Rate : 165 FHR Baseline Changes: Tachycardia Variability: Minimal - Undetectable to <=5 bpm Accelerations: None Decelerations: Variable Category: Category II Datetime: 12/05/2017 01:50 STAGE 2 Pushing: Involuntary Pushing Pushing Position: Pushing with Contractions Pushing Progress: Descent with Pushing Datetime: 12/05/2017 01:30 Vibroacoustic Stim: Datetime: 12/05/2017 01:08 VAGINAL EXAM Dilatation (cm): 10.0 Effacement (%): 100 Station: 2 Exam by: Speedy Awad CNM Datetime: 12/05/2017 01:00 Resting Tone IUP (mmHg): Actions for Decelerations: Side to Side Datetime: 12/05/2017 00:27 Patient Care Comments: la catheter 225 Datetime: 12/05/2017 00:23 Temperature (C): 37.4 Pain Coping: Sleeping Datetime: 12/05/2017 00:07 Antiemetics/Antacids: Zofran (mg) @ 4 Datetime: 12/05/2017 00:00 ASSESSMENT B Monitor Mode: External US FHR Baseline Rate : 150 Variability: Moderate 6-25 bpm Accelerations: 15X15 Decelerations: None Category: Category I Datetime: 12/04/2017 22:34 Monitor Interventions for UA: [place] Adjusted Datetime: 12/04/2017 22:18 Monitor Interventions for FHR: Ultrasound Adjusted Hygiene: Underpad Changed; Peripad Changed; Linens Changed Datetime: 12/04/2017 22:05 Patient Position/Activity: Left Lateral Datetime: 12/04/2017 21:38 PAIN Pain Scale: 2 Pain Presence: Intermittent Pain Type: Pressure Pain Location: Perineum Pain Relief Measures: Comfort Measures MEDICATIONS Pitocin (milliunits): Increased to @ 2 Datetime: 12/04/2017 20:30 Contraction Comments: coupleting noted Datetime: 12/04/2017 20:08 Epidural Procedure Other: Redose Anesthesia Comments: Anesthesia in room to redose Datetime: 12/04/2017 19:52 Pain Assessment Comments: Offered pt fentanyl via IV; pt refused Datetime: 12/04/2017 19:49 MATERNAL ASSESSMENT Level of Consciousness: Fully Conscious DTR's/Clonus: DTRs 2+; No Clonus Headache: Denies Breath Sounds, Left: Clear and Equal Breath Sounds, Right: Clear and Equal Nausea/Vomiting: Present RUQ Epigastric Pain: Denies Datetime: 12/04/2017 19:45 COMMUNICATION Communication: Call/Page Placed to Provider Communication Comments: Call placed to Aube, [employer] SPECIFICATION INSPECTOR to redose pt Datetime: 12/04/2017 19:38 Pain Goal: 5 Datetime: 12/04/2017 19:29 Oxygen Method: Room Air Comfort Measures: Breathing/Relaxation; Coaching Anesthesia Level Check: T11 Datetime: 12/04/2017 19:04 Vaginal Bleeding: None Cervix, Consistency: Soft Cervix, Position: Posterior Datetime: 12/04/2017 19:00 Antibiotics: Other Antibiotic @ vanco Datetime: 12/04/2017 18:55 Respirations: 16 Datetime: 12/04/2017 17:45 Stage of : Labor Datetime: 12/04/2017 17:40 I/O Interventions: La Cath Inserted Datetime: 12/04/2017 17:30 Comments: min mod varibilty Datetime: 12/04/2017 15:45 Epidural Procedure: Loading Dose Datetime: 12/04/2017 15:28 PROCEDURE TIME OUT Procedure Verify: Correct Patient Identity; Correct Side and Site are Marked; Accurate Procedure Co nsent Form; Correct Patient Position; Safety Precautions Based on Patient History or Medication Use ANESTHESIA Epidural Positioning: Sitting Datetime: 12/04/2017 15:02 PATIENT CARE IV/Blood Work: IV Bolus Started Datetime: 12/04/2017 14:41 Vaginal Exam Comments: pt feeling more pressure with ctx, ctx are more intense and requested to be checked Datetime: 12/04/2017 13:23 Cervical Ripening Agents: Cytotec @ 50 Datetime: 12/04/2017 09:24 Membrane Comments: slight yellow color noted in fluid when pt went to bathroom Datetime: 12/04/2017 09:13 Medication Comments: buccal Datetime: 12/04/2017 08:35 Provider Notified (Name): report given to james. pt having occ ctx. ok to allow pt to be off monit or while eating breakfast. orders received for cytotec 50mcg buccal x1
== END 2017-12-07 14:30 | disposition home or self-care (01) | DRG 807 ==
LOC: WFO 05:42 → FBP 05:43 → WFO 05:55 → FBP 06:00 → UNDOADMIN 06:00 → FBP 06:03
PROVIDERS: ADMIT Nurse Practitioner Obstetrics & Gynecology; ATTEND Nurse Practitioner Obstetrics & Gynecology
PROC: 10E0XZZ Delivery of Products of Conception, External Approach (ICD-10-PCS; principal; 2017-12-05)
PROC: 0HQ9XZZ Repair Perineum Skin, External Approach (ICD-10-PCS; 2017-12-05)
DX: O42.02 Full-term premature rupture of membranes, onset of labor within 24 hours of rupture (principal); Z37.0 Single live birth; O70.0 First degree perineal laceration during delivery; O76 Abnormality in fetal heart rate and rhythm complicating labor and delivery; O26.893 Other specified pregnancy related conditions, third trimester; O99.824 Streptococcus B carrier state complicating childbirth; O99.344 Other mental disorders complicating childbirth; F41.9 Anxiety disorder, unspecified; F32.9 Major depressive disorder, single episode, unspecified; O40.3XX0 Polyhydramnios, third trimester, not applicable or unspecified; O77.0 Labor and delivery complicated by meconium in amniotic fluid; Z3A.37 37 weeks gestation of pregnancy; Z88.0 Allergy status to penicillin; Z67.11 Type A blood, Rh negative; Z79.899 Other long term (current) drug therapy
CPT/HCPCS: 83033; 84112; 85025; 86900; 86901; 99213

== ENCOUNTER 2018-04-23 01:44 | Emergency (ER) | payer OTHER ==
[2018-04-23 01:54] VITALS: BP 111/63
[2018-04-23] MEDS ORDERED: ACETAMINOPHEN 500 MG TABLET PO STA (02:06)
[2018-04-23] MEDS ORDERED: cephALEXin 250 MG CAPSULE PO STA (02:06)
--- NOTE | 2018-04-23 02:08 | ED Physician Documentation ---
History of Present Illness - Stated complaint Stated Complaint: RT BREAST PX - Chief complaint Chief Complaint: General - Additonal information Additional information: 22-year-old female who presents the emergency department with right breast redness and pain. The patient currently is breast-feeding and developed breast pain 2 days ago and now has redness of the breast. The patient reports subjective fevers. The patient denies breast swelling or any focal area of breast pain. Symptoms are described as moderate. The patient is still pumping Review of Systems Constitutional: reports: Fever, Chills, Myalgias Eyes: denies: Discharge Ears: denies: Ear pain Nose: denies: Congestion Throat: denies: Sore throat : reports: Other (Breast pain) Skin: reports: Other (Breast redness) Neurologic: reports: Generalized weakness PD PAST MEDICAL HISTORY - Past Medical History Past Medical History: Yes Cardiovascular: None Respiratory: None Neuro: None Endocrine/Autoimmune: None GI: None SURGICAL SPECIALIST: None : None Psych: Depression, Anxiety Musculoskeletal: None Derm: None - Past Surgical History Past Surgical History: No - Present Medications Home Medications: Ambulatory Orders Medication Instructions Recorded Confirmed Cephalexin [Keflex] 500 mg PO Q6H #40 capsule 04/23/18 - Allergies Allergies/Adverse Reactions: Allergies Allergy/AdvReac Type Severity Reaction Status Date / Time Penicillins AdvReac Hives Verified 04/23/18 01:54 - Social History Does the pt smoke?: No Smoking Status: Never smoker Does the pt drink ETOH?: No Does the pt have substance abuse?: No - Immunizations Immunizations are current?: Yes - POLST Patient has POLST: No PD ED PE NORMAL - General General: Alert and oriented X 3, No acute distress - HEENT HEENT: Atraumatic, PERRL, EOMI, Ears normal - Cardiac Cardiac: RRR, Strong equal pulses - Neuro Neuro: Alert and oriented X 3, Normal speech - Psych Psych: Normal mood PD ED PE EXPANDED - Derm SKin visual: 1 - tenderness (The right breast is erythematous, there is no localized area to suggest abscess, there is no swelling when compared to the left. The left joe ast is unremarkable) Results - Vitals Vitals: Vital Signs - 24 hr 04/23/18 01:51 Temperature 36.7 C Heart Rate 74 Respiratory 16 Rate Blood Pressure 111/63 O2 Saturation 98 Oxygen O2 Source Room air PD MEDICAL DECISION MAKING - ED course ED course: The patient has acute mastitis, there is no localized area on examination to suggest abscess and currently imaging is not warranted. The patient appears appropriate for outpatient management with oral Keflex. I advised continued pumping on that side. The patient understands and agrees. The patient will return to the emergency department for any worsening or any concerns Departure - Departure Disposition: 01 Home, Self Care Clinical Impression: Mastitis Condition: Good Instructions: ED Breast Infec, Mastoiditis Ch Follow-Up: Ami Berry MD [Primary Care Provider] - Within 1 week Prescriptions: Cephalexin [Keflex] 500 mg PO Q6H #40 capsule Comments: Please return to the ED for worsening symptoms or any concerns
== END 2018-04-23 02:19 | disposition home or self-care (01) ==
LOC: ED 01:44
DX: N61.0 Mastitis without abscess (principal)
CPT/HCPCS: 99283; A9270

== ENCOUNTER 2019-02-06 09:57 | Outpatient (CLI) | payer OTHER ==
[2019-02-06 12:28] LABS: BASOPHILS % (AUTO) 0.5 %; EOSINOPHILS # (AUTO) 0.1 10^3/uL (0.0-0.7); EOSINOPHILS % (AUTO) 0.8 %; HGB - HEMOGLOBIN 12.7 g/dL (12.0-16.0); LYMPHOCYTES # (AUTO) 1.9 10^3/uL (1.5-3.5); LYMPHOCYTES % (AUTO) 28.8 %; MEAN CORPUSCULAR HEMOGLOBIN 26.8 pg (27.0-31.0); MEAN CORPUSCULAR HGB CONC 30.9 g/dL (32.0-36.0); MEAN CORPUSCULAR VOLUME 86.7 fL (81.0-99.0); MEAN PLATELET VOLUME 11.1 fL (7.9-10.8); MONOCYTES # (AUTO) 0.4 10^3/uL (0.0-1.0); MONOCYTES % (AUTO) 6.2 %; NEUTROPHILS # (AUTO) 4.2 10^3/uL (1.5-6.6); NEUTROPHILS % (AUTO) 63.4 %; PLT - PLATELET COUNT 261 10^3/uL (130-450); RED BLOOD COUNT 4.74 10^6/uL (4.20-5.40); WHITE BLOOD COUNT 6.6 x10^3/uL (4.8-10.8)
[2019-02-06 12:35] LABS: ALBUMIN 4.5 g/dL (3.2-5.5); ALBUMIN/GLOBULIN RATIO 1.3 (1.0-2.2); BILIRUBIN,TOTAL 0.7 mg/dL (0.2-1.0); CALCIUM 9.2 mg/dL (8.5-10.3); CREATININE 0.9 mg/dL (0.4-1.0); TOTAL PROTEIN 7.9 g/dL (6.7-8.2)
[2019-02-06 12:57] LABS: PROLACTIN 5.12 ng/mL
[2019-02-06 13:19] LABS: FOLLICLE STIMULATING HORMONE 4.33 mIU/mL
[2019-02-06 13:20] LABS: LUTEINIZING HORMONE 6.43 mIU/mL
== END 2019-02-06 23:59 | disposition home or self-care (01) ==
LOC: LAB.N 09:57
PROVIDERS: ATTEND Nurse Practitioner Gerontology
DX: Z00.00 Encounter for general adult medical examination without abnormal findings (principal); E34.9 Endocrine disorder, unspecified; Z79.899 Other long term (current) drug therapy
CPT/HCPCS: 36415; 80053; 82670; 83001; 83002; 84146; 84443; 85025

== ENCOUNTER 2019-03-13 14:39 | Outpatient (CLI) | payer OTHER ==
--- NOTE | 2019-03-14 13:27 | Ultrasound Report ---
Reason: TEST POSITIVE Procedure Date: 03/13/2019 Accession Number: [id number] / [id number] Procedure: US - OB First Trimester CPT Code: Final Report FULL RESULT: EXAM: FIRST TRIMESTER OBSTETRIC ULTRASOUND (Less than 11 weeks) EXAM DATE: 03/13/2019 03:30 PM. CLINICAL HISTORY: TEST POSITIVE. LMP: 01/20/2019. COMPARISONS: None for this . TECHNIQUE: Transabdominal and transvaginal ultrasound examination with static image documentation. CLINICAL DATES: EGA 7 weeks 3 days with JUANA 10/27/2019 based on LMP. ASSESSMENT: Gestational Sac: Single intrauterine. Mean gestational sac diameter: 19 mm = 6 weeks 6 days. Embryo: CRL (crown-rump length) 7 mm = 6 weeks 4 days. Cardiac activity: 119 beats per minute. Yolk sac: 3 mm. Amniotic fluid: Not accurately assessed at this gestational age. Early placenta: Not visible at this gestational age. Other: No perigestational fluid collection demonstrated. MATERNAL STRUCTURES: Uterus: Anteverted. Unremarkable. Cervix: Closed. Right Ovary/Adnexa: The ovary measures 2.6 x 2.0 x 2.5 cm, volume 7.1 cc. Corpus luteum cyst is present in right ovary measuring 1.4 x 1.5 x 1.8 cm. Right ovary otherwise unremarkable. Left Ovary/Adnexa: The ovary measures 1.7 x 1.1 x 1.6 cm, volume 1.6 cc. Unremarkable. Free Fluid: None. Other: None. IMPRESSION: 1. Single viable intrauterine at EGA 6 weeks 4 days with JUANA 11/02/2019 based on crown-rump length. 2. Clinical dates is JUANA 10/27/2019 based on LMP of 01/20/2019. RADIA
== END 2019-03-13 14:40 | disposition home or self-care (01) ==
LOC: DI 14:39
PROVIDERS: ATTEND Obstetrics & Gynecology
DX: Z32.01 Encounter for pregnancy test, result positive (principal)
CPT/HCPCS: 76801; 76817

== ENCOUNTER 2019-03-16 08:00 | Outpatient (CLI) | payer OTHER | END 2019-03-16 23:59 | disposition home or self-care (01) | LOC: LAB.R 08:00 | PROVIDERS: ATTEND Obstetrics & Gynecology | DX: R30.0 Dysuria (principal) | CPT/HCPCS: 87086 ==

== ENCOUNTER 2019-03-19 08:00 | Outpatient (CLI) | payer OTHER ==
[2019-03-19 20:22] LABS: CANDIDA GROUP DNA POSITIVE (NEGATIVE); CANDIDA KRUSEI DNA NEGATIVE (NEGATIVE); TRICHOMONAS VAGINALIS DNA NEGATIVE (NEGATIVE)
[2019-03-19 21:34] LABS: TRICHOMONAS VAGINALIS DNA NEGATIVE (NEGATIVE)
== END 2019-03-19 23:59 | disposition home or self-care (01) ==
LOC: LAB.R 08:00
PROVIDERS: ATTEND Obstetrics & Gynecology
DX: O23.599 Infection of other part of genital tract in pregnancy, unspecified trimester (principal); Z3A.00 Weeks of gestation of pregnancy not specified
CPT/HCPCS: 87491; 87591; 87661; 87801

== ENCOUNTER 2019-04-06 07:00 | Outpatient (CLI) | payer OTHER ==
[2019-04-06 15:23] LABS: MUDS CUTOFF CONCENTRATIONS CUTOFF CONC BELOW:
[2019-04-06 15:35] LABS: BILIRUBIN,URINE NEGATIVE (NEGATIVE); GLUCOSE, URINE (UA) NEGATIVE (NEGATIVE); KETONES,URINE (UA) NEGATIVE (NEGATIVE); LEUKOCYTE ESTERASE, URINE NEGATIVE (NEGATIVE); NITRITE,URINE NEGATIVE (NEGATIVE); OCCULT BLOOD,URINE TRACE-INTA (NEGATIVE); PH,URINE 7.5 PH (5.0-7.5); PROTEIN,URINE NEGATIVE (NEGATIVE); UROBILINOGEN,URINE 0.2 (NORMAL) E.U./dL (NORMAL)
[2019-04-06 15:54] LABS: AMORPHOUS SEDIMENT,UR Marked /LPF; BACTERIA,URINE Rare /HPF (None Seen); CLARITY,URINE CLOUDY (CLEAR); RBC,URINE 0-5 /HPF (0-5); SQUAMOUS EPITHELIAL CELL,UR RARE Squamous (<= Few)
[2019-04-06 15:58] LABS: AMPHETAMINE SCREEN,URINE NEGATIVE (NEGATIVE); BENZODIAZEPINES SCREEN, URINE NEGATIVE (NEGATIVE); COCAINE SCREEN URINE NEGATIVE (NEGATIVE); METHADONE SCREEN, URINE NEGATIVE (NEGATIVE); METHAMPHETAMINES SCREEN, URINE NEGATIVE (NEGATIVE); OPIATE SCREEN, URINE NEGATIVE (NEGATIVE); OXYCODONE SCREEN, URINE NEGATIVE (NEGATIVE); PROPOXYPHENE SCREEN, URINE NEGATIVE (NEGATIVE); TRICYCLIC ANTIDEPRESSANT,URINE NEGATIVE (NEGATIVE)
== END 2019-04-06 23:59 | disposition home or self-care (01) ==
LOC: LAB.R 07:00
PROVIDERS: ATTEND Nurse Practitioner Obstetrics & Gynecology
DX: Z36.89 Encounter for other specified antenatal screening (principal)
CPT/HCPCS: 80306; 81001; 87086

== ENCOUNTER 2019-04-11 08:00 | Outpatient (CLI) | payer MEDICAID, OTHER ==
[2019-04-11 13:20] LABS: BASOPHILS % (AUTO) 0.3 %; EOSINOPHILS % (AUTO) 0.3 %; HGB - HEMOGLOBIN 12.3 g/dL (12.0-16.0); LYMPHOCYTES # (AUTO) 2.1 10^3/uL (1.5-3.5); LYMPHOCYTES % (AUTO) 32.2 %; MEAN CORPUSCULAR HEMOGLOBIN 27.5 pg (27.0-31.0); MEAN CORPUSCULAR HGB CONC 31.7 g/dL (32.0-36.0); MEAN CORPUSCULAR VOLUME 86.6 fL (81.0-99.0); MEAN PLATELET VOLUME 11.6 fL (7.9-10.8); MONOCYTES # (AUTO) 0.3 10^3/uL (0.0-1.0); MONOCYTES % (AUTO) 4.9 %; PLT - PLATELET COUNT 226 10^3/uL (130-450); RED BLOOD COUNT 4.48 10^6/uL (4.20-5.40); RED CELL DISTRIBUTION WIDTH 16.7 % (12.0-15.0); WHITE BLOOD COUNT 6.4 x10^3/uL (4.8-10.8)
[2019-04-12 12:07] LABS: HEPATITIS B SURFACE ANTIGEN NON-REACTIVE (NON-REACTIVE)
[2019-04-12 12:09] LABS: HEPATITIS C ANTIBODY NON-REACTIVE (NON-REACTIVE)
[2019-04-12 13:24] LABS: HIV AG/AB 4TH GEN NON-REACTIVE (NON-REACTIVE)
== END 2019-04-11 23:59 | disposition home or self-care (01) ==
LOC: LAB.WCP 08:00
PROVIDERS: ATTEND Nurse Practitioner Obstetrics & Gynecology
DX: Z36.89 Encounter for other specified antenatal screening (principal)
CPT/HCPCS: 36415; 81599; 85025; 86592; 86762; 86803; 86850; 86900; 86901; 87340; 87389